=== PATIENT | male | born 1960 | race African-American/Black ===

== ENCOUNTER 2018-05-13 15:00 | Emergency (ER) | payer OTHER ==
[~2018-05-13] VITALS: Ht 177.8 cm; Wt 79.0 kg
[2018-05-13] MEDS ORDERED: LORAZEPAM 2MG/ML CPJ ONE (16:09)
[2018-05-13] MEDS ORDERED: LORAZEPAM 2MG/ML CPJ IV ONE (16:15)
[2018-05-13] MEDS ORDERED: HALOPERIDOL LACTATE 5MG/ML VIAL IM ONE ×2 (16:15→18:30)
[2018-05-13 16:23] LABS: BASOPHILS % 0.6 % (0.0-2.0); EOSINOPHILS % 0.5 % (0.0-5.0); HEMATOCRIT. 46.9 % (42.0-52.0); MEAN CORPUSCULAR HEMOGLOBIN 32.3 pg (28.0-32.0); MEAN CORPUSCULAR VOLUME 94.7 fL (80.0-94.0); MEAN PLATELET VOLUME 8.2 fl (7.4-10.4); MONOCYTES % 5.2 % (2.0-8.0); NEUTROPHILS % 61.7 % (40.0-76.0); PLATELET 261 x1000/uL (130-400); RED BLOOD CELL COUNT 4.96 mill/uL (4.7-6.1); RED CELL DISTRIBUTION WIDTH 13.7 % (11.6-14.6)
[2018-05-13 16:26] LABS: CHLORIDE 111 mEq/L (98-107)
[2018-05-13 16:30] LABS: ETHANOL BLOOD 276 mg/dL
[2018-05-13 16:34] LABS: CREATINE KINASE 863 IU/L (39-308)
[2018-05-13 16:54] LABS: CLARITY URINE CLEAR (CLEAR); COLOR URINE YELLOW (YELLOW); KETONES URINE NEGATIVE (NEGATIVE); LEUKOCYTE ESTERASE URINE NEGATIVE (NEGATIVE); NITRITE URINE NEGATIVE (NEGATIVE); OCCULT BLOOD URINE TRACE (NEGATIVE); PH URINE 6.5 (4.5-8.0); PROTEIN URINE 1+ (NEGATIVE); SPECIFIC GRAVITY URINE 1.007 (1.005-1.030)
[2018-05-13 17:04] LABS: *AMPHETAMINES SCREEN URINE NEGATIVE (NEGATIVE); *BARBITURATES SCREEN URINE NEGATIVE (NEGATIVE); *BENZODIAZEPINES SCREEN URINE NEGATIVE (NEGATIVE); *COCAINE SCREEN URINE NEGATIVE (NEGATIVE); METHADONE URINE SCREEN NEGATIVE (NEGATIVE)
[2018-05-13 17:05] LABS: CANNABINOID URINE SCREEN PRESUMTIVE POSITIVE (NEGATIVE); OPIATES URINE SCREEN NEGATIVE (NEGATIVE); PHENCYCLIDINE URINE SCREEN NEGATIVE (NEGATIVE)
[2018-05-13] MEDS ORDERED: LACTATED RINGERS 1,000 ML IV STA (17:34)
[2018-05-14 06:48] VITALS: BP 140/75
== END 2018-05-14 06:51 | disposition home or self-care (01) ==
LOC: EDBD 15:23 → ER 15:23
DX: F10.129 Alcohol abuse with intoxication, unspecified (principal); R45.1 Restlessness and agitation; F12.10 Cannabis abuse, uncomplicated; Y90.8 Blood alcohol level of 240 mg/100 ml or more; Z78.1 Physical restraint status; Z04.1 Encounter for examination and observation following transport accident
CPT/HCPCS: 36415; 80053; 80305; 80320; 81003; 82550; 82962; 83605; 85025; 93005; 96365; 96372; 96375; 99284; J1630; J2060; G0480